=== PATIENT | female | born 1970 | race Caucasian/White ===

== ENCOUNTER 2016-07-28 19:02 | Emergency (ER) | payer OTHER ==
[~2016-07-28] VITALS: Ht 172.7 cm; Wt 68.0 kg
--- NOTE | 2016-07-28 20:04 | ED UPPER/LOWER EXTREMITY COMPL ---
History of Present Illness General Chief Complaint: Laceration Procedure Stated Complaint: LAC TO BACK OF ANKLE Source: patient Exam Limitations: no limitations Vital Signs & Intake/Output Vital Signs & Intake/Output Vital Signs Date Time Temp Pulse Resp B/P Pulse O2 O2 Flow FiO2 Ox Delivery Rate 07/28 2154 98.1 72 20 119/70 97 Room Air 07/287 99.0 74 20 115/79 99 Room Air ED Intake and Output 07/29 0000 07/28 1200 Intake Total Output Total Balance Patient 150 lb Weight Allergies Coded Allergies: No Known Allergies (07/28/16) Reconcile Medications Aspirin (Aspirin*) 325 MG TABLET 1 TAB PO ONCE HEADACHE (Reported) Cholecalciferol (Vitamin D3) (Vitamin D) (Unknown Strength) TABLET (Unknown Dose) PO DAILY SUPPLEMENT (Reported) Cyanocobalamin (Vitamin B-12) (Vitamin B-12) 100 MCG TABLET 1 TAB PO DAILY SUPPLEMENT (Reported) Levothyroxine Sodium (Synthroid) 112 MCG TABLET 1 TAB PO DAILY THYROID ( Reported) Pravastatin Sodium 20 MG TABLET 1 TAB PO DAILY CHOLESTEROL (Reported) Triage Note: TRIAGE: PT TO ER C/C LAC TO BACK OF ANKLE 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 BLEEDING CONTROLLED. ?TENDON INVOLVEMENT. ABLE TO MOVE TOES AT TRIAGE. GAUZE DRESSING APPLIED AT TRIAGE. Triage Nurses Notes Reviewed? yes Onset: Abrupt Duration: constant Timing: single episode today Severity: mild Severity Numbers: 3 HPI: Patient is a 45-year-old female who presents emergency room stating that today this evening patient was closing closet door where subsequently it became loose on the hinge and fell onto patient in which the metal aspect of the door struck patient to the right posterior ankle and Achilles region resulting in a laceration in which bleeding was controlled prior to arrival. Patient can ambulate with pain patient can move the ankle fully for dorsiflexion and plantarflexion. Tetanus is unknown. (LYNSEY ALVES) Past History Travel History Traveled to [place] past 21 day No Medical History Any Pertinent Medical History? see below for history Neurological: migraine EENT: allergies Cardiovascular: hyperlipidemia Respiratory: NONE Gastrointestinal: NONE Hepatic: NONE Renal: NONE Musculoskeletal: NONE Psychiatric: NONE Endocrine: hypothyroidism Blood Disorders: NONE Cancer(s): NONE GROUNDSKEEPER PORTER/Reproductive: NONE Surgical History Surgical History: non-contributory Psychosocial History What is your primary language Fijian Tobacco Use: Never used ETOH Use: occasional use Illicit Drug Use: denies illicit drug use Family History Hx Contributory? No (LYNSEY ALVES) Review of Systems Review of Systems Constitutional: Reports: no symptoms. EENTM: Reports: no symptoms. Respiratory: Reports: no symptoms. Cardiovascular: Reports: no symptoms. Gastrointestinal/Abdominal: Reports: no symptoms. Genitourinary: Reports: no symptoms. Musculoskeletal: Reports: see HPI. Skin: Reports: see HPI. Neurological/Psychological: Reports: no symptoms. Hematologic/Endocrine: Reports: see HPI, bleeding. Immunological: Reports: no symptoms. All Other Systems: Reviewed and Negative (LYNSEY ALVES) Physical Exam Physical Exam General Appearance: no apparent distress, alert, comfortable Neurologic/Tendon: normal sensation, normal motor functions, normal tendon functions, responds to pain, no evidence tendon injury, no pulse deficit Skin: normal color, warm/dry Comments: Well-developed well-nourished no apparent distress. HEENT: Atraumatic, extraocular motion intact Neck: Supple, no lymphadenopathy Back: Nontender Respiratory: No respiratory distress Extremities: No edema, full range of motion Neuro: Alert and oriented x3 Psych: Mood affect normal, normal memory normal judgment. Diagram Legs Front/Back 1) 5 cm subcutaneous irregular laceration noted Full active range of motion and resisted range of motion noted with dorsiflexion and plantarflexion no exposed bone no exposed tendon sensation intact no active bleeding noted no tendon deficit especially no Achilles tendon deficit (LYNSEY ALVES) Progress Differential Diagnosis: arterial insufficiency, compartment syndrome, contusion, dislocation, DVT, fracture, gout, septic arthritis, sprain, tendon injury Plan of Care: NO CONCERN OF TENDON DEFICIT ON EXAM USING STERILE TECHNIQUE, I APPLIED #4 4-0 CHROMIC SUBDERMAL SUTURE TO REVISED MARGINS THEN I USED #5 3-0, HORIZONTAL MATTRESS TECHNIQUE IN WHICH MARGINS WERE REVISED, PT TOLERATED WELL BACITRACIN AND KERLIX WAS APPLIED CRUTCHES WERE ADVISED TO IMPROVEMENT OF HEALING. (LYNSEY ALVES) Departure Departure Disposition: HOME OR SELF CARE Condition: Stable Clinical Impression Primary Impression: Laceration of right calf without complication Referrals: JOI ACE,SHRUTHI Jamil (PCP/Family) Additional Instructions: As discussed begin to apply bacitracin to the area once a day for the following 4 days then after leave open to improve healing. If you note signs of infection redness, pain, swelling, discharge return to emergency room immediately. Begin using crutches until you walk without pain or after 5 days to improve healing. Keep area dry and clean as YOU can. Begin [id number] ibuprofen if needed for pain and inflammation. Return to emergency room in 10 days for suture removal. Departure Forms: Customer Survey General Discharge Information (LYNSEY ALVES) PA/DE [employer] K[employer] ASSEMBLER Co-Sign Statement Statement: ED Attending supervision documentation- [] I saw and evaluated the patient. I have also reviewed all the pertinent lab results and diagnostic results. I agree with the findings and the plan of care as documented in the PA's/DE ICER KIT ASSEMBLER's documentation. [x] I have reviewed the ED Record and agree with the PA's/DE ICER KIT ASSEMBLER's documentation. [] Additions or exceptions (if any) to the PAs/DE ICER KIT ASSEMBLER's note and plan are summarized below: [] (CASTRO FINNEY DO) Procedures Laceration/Wound Repair Laceration/Wound Repair: Wound Location: lower extremity (RIGHT ACHILLES) Wound's Depth, Shape: subcutaneous Wound Length (cm): 5 Wound Explored: clean, no foreign body removed, irrigated extensively Irrigated w/ Saline (ccs): 500 Betadine Prep? Yes Anesthesia: 1% lidocaine Volume Anesthetic (ccs): 8 Wound Repaired With: sutures Suture Size/Type: 3:0 Number of Sutures: 5 Layer Closure? Yes Deep Layer Suture Size/Type: 4:0, chromic Number Deep Layer Sutures: 4 (LYNSEY ALVES)
[2016-07-28] MEDS ORDERED: PRAVASTATIN SOD20 M2 PO (21:15)
[2016-07-28] MEDS ORDERED: SYNTHROID112 MCG PO (21:15)
[2016-07-28] MEDS ORDERED: VITAMIN D1000 UNIT PO (21:16)
[2016-07-28] MEDS ORDERED: VITAMIN B-12100 MC1 PO (21:16)
[2016-07-28] MEDS ORDERED: ASPIRIN325 M2 PO (21:17)
[2016-07-28 21:55] VITALS: BP 119/70
== END 2016-07-28 22:04 ==
LOC: ERH 19:02
DX: S81.812A Laceration without foreign body, left lower leg, initial encounter (principal); W20.8XXA Other cause of strike by thrown, projected or falling object, initial encounter; Y93.89 Activity, other specified; Y92.9 Unspecified place or not applicable
CPT/HCPCS: 90471; 90714